=== PATIENT | female | born 1975 | race Caucasian/White ===

== ENCOUNTER → 2024-02-10 | Outpatient (RCR) | payer OTHER ==
[~2024-02-10] MED LIST: DIFLUCAN150 MG PO; LEXAPRO 10MG10 MG PO; MINIPRESS 1M1 MG/CAP PO; Meropenem 1 G in Water For Injection,Sterile 20 ML IV SCH; PYRIDIUM200 M1 PO; ULTRAM 50MG TAB50 MG PO; WELLBUTRIN XL300 M1 PO
[2024-02-10 14:50] VITALS: BP 123/85; PULSE 88; TEMP 98.9
--- NOTE | 2024-02-10 15:32 | NUR ---
Pt dicharged via ambulatory with INT in place,wrapped in coban.
[2024-02-10 22:40] VITALS: BP 151/90; PULSE 82; TEMP 98.7
== END | disposition home or self-care (01) ==
LOC: EUO
DX: N39.0 Urinary tract infection, site not specified (principal); B96.20 Unspecified Escherichia coli [E. coli] as the cause of diseases classified elsewhere
CPT/HCPCS: J2185